=== PATIENT | female | born 1975 | race Two or more races ===

== ENCOUNTER 2023-08-24 06:48 | Day surgery (SDC) | payer OTHER ==
[~2023-08-24] VITALS: Ht 154.9 cm; Wt 71.7 kg
[2023-08-24] MEDS ORDERED: HEPARIN SODIUM,PORCINE 500 UNITS/5 ML VIAL IV SCH ×3 (09:45→11:15)
[2023-08-24] MEDS ORDERED: LIDOCAINE HCL 1%/EPINEPHRINE 20ML VIAL IJ SCH (09:45)
[2023-08-24] MEDS ORDERED: BUPIVACAINE HCL 30 ML VIAL IJ SCH (09:45)
[2023-08-24] MEDS ORDERED: CEFAZOLIN SODIUM 1,000 MG VIAL IV SCH (09:45)
[2023-08-24] MEDS ORDERED: TRAM1TAB98 PO (10:38)
== END 2023-08-24 13:25 | disposition home or self-care (01) ==
LOC: CIR.AMB 06:48
PROVIDERS: ATTEND Surgery
DX: C50.011 Malignant neoplasm of nipple and areola, right female breast (principal)

== ENCOUNTER 2024-04-18 06:00 | Day surgery (SDC) | payer OTHER ==
[2024-04-15 10:31] VITALS: BP 124/83
[~2024-04-18] VITALS: Ht 154.9 cm; Wt 75.3 kg
[~2024-04-18 06:00] MED LIST: PEPCID AC20 MG PO; PRILOSEC OTC20 MG PO; TRAM1TAB98 PO
[2024-04-18] MEDS ORDERED: POVIDONE-IODINE 118 ML BOTT TOP ONE ×2 (11:56→12:10)
[2024-04-18] MEDS ORDERED: CEFAZOLIN SODIUM 1,000 MG VIAL ONE (12:10)
[2024-04-18] MEDS ORDERED: GENTAMICIN SULFATE 40 MG/ML VIAL ONE (12:10)
[2024-04-18] MEDS ORDERED: CLINDAMYCIN PHOSPHATE 150 MG/ML (900mg) ONE (12:14)
[2024-04-18] MEDS ORDERED: ONDANSETRON HCL 2 MG/ML VIAL ONE (14:56)
[2024-04-18] MEDS ORDERED: MORPHINE SULFATE 4 MG/ML VIAL IV ONE (15:15)
== END 2024-04-18 20:25 | disposition home or self-care (01) ==
LOC: CIR.AMB 06:00
PROVIDERS: ATTEND Surgery
DX: C50.411 Malignant neoplasm of upper-outer quadrant of right female breast (principal); R59.0 Localized enlarged lymph nodes; N62 Hypertrophy of breast; N64.81 Ptosis of breast; Z88.6 Allergy status to analgesic agent; Z90.11 Acquired absence of right breast and nipple; J45.909 Unspecified asthma, uncomplicated; M19.90 Unspecified osteoarthritis, unspecified site; K21.9 Gastro-esophageal reflux disease without esophagitis